=== PATIENT | female | born 1985 | race Caucasian/White ===

== ENCOUNTER 2017-05-28 09:34 | Emergency (ER) | payer MEDICAID, OTHER ==
--- NOTE | 2017-05-28 10:39 | ED PDOC ---
HPI: Psych/Substance Abuse Time Seen by Provider: 05/28/17 09:54 Chief Complaint (Nursing): Substance Abuse Chief Complaint (Provider): Substance Abuse History Per: Patient History/Exam Limitations: no limitations Current Symptoms Are (Timing): Still Present Suicide/Self Injury Attempted (Context): None Additional Complaint(s): Destiney Larkin is a 31 year old female with a history of substance abuse that presents to the ED after her family found her unresponsive at home, where she was given NARCAN. Patient is now awake, alert, and oriented x3 in ED, and reports that she had a knee injury for which she had surgery for in April and still takes pain medication for it. She additionally states that she slipped and fell last night, hurting her left knee. Afterwards she reports that she took two 30 mg tabs Oxycodone, and Xanax 2.5 mg, which caused her to become unresponsive. Patient denies any suicidal ideation, and states that she was only trying to control her pain. Past Medical History Reviewed: Historical Data, Nursing Documentation, Vital Signs Vital Signs: Last Vital Signs Temp 97.7 F 05/28/17 09:48 Pulse 112 H 05/28/17 09:48 Resp 14 05/28/17 09:48 BP 118/76 05/28/17 09:48 Pulse Ox 92 L 05/28/17 09:48 - Medical History PMH: Anxiety, Depression - Surgical History Surgical History: Appendectomy - Family History Family History: States: Unknown Family Hx - Social History Drugs: Other (Pt has hx of substance abuse) - Allergies Allergies/Adverse Reactions: Allergies Allergy/AdvReac Type Severity Reaction Status Date / Time shellfish derived Allergy RASH Verified 05/28/17 09:48 Review of Systems Musculoskeletal: Positive for: Leg Pain (left knee and ankle pain and swelling) Psych: Negative for: Suicidal ideation Physical Exam - Reviewed Nursing Documentation Reviewed: Yes Vital Signs Reviewed: Yes - Physical Exam Appears: Positive for: Non-toxic, No Acute Distress Head Exam: Positive for: ATRAUMATIC, NORMOCEPHALIC Skin: Positive for: Normal Color, Warm Eye Exam: Positive for: Normal appearance, EOMI, PERRL ENT: Negative for: Normal ENT Inspection (dry mucous membranes) Cardiovascular/Chest: Positive for: Regular Rate, Rhythm. Negative for: Murmur Respiratory: Positive for: Normal Breath Sounds. Negative for: Wheezing Gastrointestinal/Abdominal: Positive for: Normal Exam, Soft. Negative for: Tenderness Extremity: Positive for: Swelling (left knee and ankle swelling) Neurologic/Psych: Positive for: Alert, Oriented (x3). Negative for: Motor/ Sensory Deficits - Laboratory Results Result Diagrams: 05/28/17 10:30 05/28/17 10:30 - ECG O2 Sat by Pulse Oximetry: 92 (RA) Pulse Ox Interpretation: Normal Medical Decision Making Medical Decision Making: Impression: Overdose/Left Knee and Ankle Injury Plan: * X-Ray Left Knee * X-Ray Left Ankle * BMP * CBC * Acetaminophen * Alcohol * Salicylate * Urine Drug Screen * Urinalysis * Reevaluation Contacted Poison Control. X-Ray Left Knee FINDINGS: BONES: No fracture. JOINTS: Unremarkable. JOINT EFFUSION: None. OTHER FINDINGS: None. IMPRESSION: No demonstrated fracture or dislocation. X-Ray Left Ankle FINDINGS: BONES: Normal. No fracture. JOINTS: Normal. No osteoarthritis. Ankle mortise maintained. Talar dome intact SOFT TISSUES: Soft tissue swelling laterally without distal fibular abnormality. OTHER FINDINGS: None. IMPRESSION: Soft tissue swelling without acute articular or osseous abnormality. CT Head FINDINGS: HEMORRHAGE: No intracranial hemorrhage. BRAIN: No mass effect or edema. No atrophy or chronic microvascular ischemic changes. VENTRICLES: Unremarkable. No hydrocephalus. CALVARIUM: Unremarkable. PARANASAL SINUSES: Unremarkable as visualized. No significant inflammatory changes. MASTOID AIR CELLS: Unremarkable as visualized. No inflammatory changes. OTHER FINDINGS: None. IMPRESSION: No acute intracranial abnormalities. No significant findings to account for the clinical presentation. 13:54 Patient's imaging is negative. Spoke to Poison Control, advised to observe patient. Waiting on urine tox. 15:00 Interpreted X-Ray, no sign of pneumonia. Patient signed out to Dr. Lou pending urine, crisis eval, and reevaluation. Chest X-Ray FINDINGS: LUNGS: No active pulmonary disease. PLEURA: No significant pleural effusion identified, no pneumothorax apparent. CARDIOVASCULAR: Normal. OSSEOUS STRUCTURES: No significant abnormalities. VISUALIZED UPPER ABDOMEN: Normal. OTHER FINDINGS: None. IMPRESSION: No active disease. Scribe Attestation: Documented by Michelle Benavidez, acting as a scribe for Anne-Marie Nguyễn MD. Provider Scribe Attestation: All medical record entries made by the Scribe were at my direction and personally dictated by me. I have reviewed the chart and agree that the record accurately reflects my personal performance of the history, physical exam, medical decision making, and the department course for this patient. I have also personally directed, reviewed, and agree with the discharge instructions and disposition. Disposition - Clinical Impression Clinical Impression: Substance abuse - Disposition Disposition: Transfer of Care Disposition Time: 15:00 Condition: FAIR Forms: [employer] (Latvian) Patient Signed Over To: Armin Lou
[2017-05-28 10:40] LABS: BASO # 0.1 K/uL (0.0-0.2); BASO % 0.3 % (0.0-2.0); EOS # 0.2 K/uL (0.0-0.7); EOS % 0.8 % (0.0-4.0); HEMOGLOBIN 11.8 g/dL (12.0-16.0); LYMPH # 2.6 K/uL (1.0-4.3); LYMPH % 12.1 % (20.0-40.0); MEAN CELL VOLUME 92.1 fl (81.0-99.0); MEAN CORPUSCULAR HEMOGLOBIN 30.5 pg (27.0-31.0); MEAN CORPUSCULAR HGB CONC 33.1 g/dL (33.0-37.0); MEAN PLATELET VOLUME 7.2 fl (7.2-11.7); MONO # 1.2 K/uL (0.0-0.8); MONO % 5.8 % (0.0-10.0); NEUT # 17.4 K/uL (1.8-7.0); NRBC % 0.1 % (0.0-0.0); RBC 3.88 Mil/uL (3.80-5.20); RED CELL DISTRIBUTION WIDTH 16.5 % (11.5-14.5); WHITE BLOOD COUNT 21.5 K/uL (4.8-10.8)
[2017-05-28 10:56] LABS: ACETAMINOPHEN < 10.0 ug/ml (10.0-30.0); BLOOD UREA NITROGEN 22 mg/dl (7-17); GFR AFRICAN-AMERICAN > 60; GFR NON-AFRICAN AMERICAN > 60; SALICYLATE < 1.0 mg/dl
--- NOTE | 2017-05-28 13:00 | RAD ---
PROCEDURE: Left Knee Radiographs. HISTORY: Pain. COMPARISON: None. FINDINGS: BONES: No fracture. JOINTS: Unremarkable. JOINT EFFUSION: None. OTHER FINDINGS: None. IMPRESSION: No demonstrated fracture or dislocation.
--- NOTE | 2017-05-28 13:24 | CT ---
PROCEDURE: CT HEAD WITHOUT CONTRAST. HISTORY: Trauma, fall COMPARISON: None available. TECHNIQUE: Axial computed tomography images were obtained through the head/brain without intravenous contrast. Radiation dose: Total exam DLP = 831.58 mGy-cm. This CT exam was performed using one or more of the following dose reduction techniques: Automated exposure control, adjustment of the mA and/or kV according to patient size, and/or use of iterative reconstruction technique. FINDINGS: HEMORRHAGE: No intracranial hemorrhage. BRAIN: No mass effect or edema. No atrophy or chronic microvascular ischemic changes. VENTRICLES: Unremarkable. No hydrocephalus. CALVARIUM: Unremarkable. PARANASAL SINUSES: Unremarkable as visualized. No significant inflammatory changes. MASTOID AIR CELLS: Unremarkable as visualized. No inflammatory changes. OTHER FINDINGS: None. IMPRESSION: No acute intracranial abnormalities. No significant findings to account for the clinical presentation.
--- NOTE | 2017-05-28 13:29 | RAD ---
PROCEDURE: Left Ankle Radiographs. HISTORY: fall COMPARISON: None FINDINGS: BONES: Normal. No fracture. JOINTS: Normal. No osteoarthritis. Ankle mortise maintained. Talar dome intact SOFT TISSUES: Soft tissue swelling laterally without distal fibular abnormality. OTHER FINDINGS: None. IMPRESSION: Soft tissue swelling without acute articular or osseous abnormality.
[2017-05-28] MEDS ORDERED: Potassium Chloride 20 mEq ER Tab PO ONE ×2 (13:52→14:10)
[2017-05-28] MEDS ORDERED: Sodium Chloride 0.9% 1,000 ML IV STA (13:53)
--- NOTE | 2017-05-28 14:45 | RAD ---
HISTORY: leukocytosis COMPARISON: No prior. FINDINGS: LUNGS: No active pulmonary disease. PLEURA: No significant pleural effusion identified, no pneumothorax apparent. CARDIOVASCULAR: Normal. OSSEOUS STRUCTURES: No significant abnormalities. VISUALIZED UPPER ABDOMEN: Normal. OTHER FINDINGS: None. IMPRESSION: No active disease.
--- NOTE | 2017-05-28 14:54 | ED PDOC ---
- Laboratory Results Result Diagrams: 05/28/17 10:30 05/28/17 10:30 Interpretation Of Abn Labs: 3 k and benzo/opiate pos - ECG O2 Sat by Pulse Oximetry: 92 (RA) - Progress ED Course And Treament: 1714: Pt. talking and eating. Smiling. States she woke up in the middle of the night to feed child and accidentally fell tripping on toys. She fell again when trying to feed baby again in the morning and ? passed out so boyfriend call EMS. Pt. states she is on oxy and alprazolam for her knee. Not suicidal or homicidal. Did not try to take too many of her meds. Elevated wbc possibly related to acute incident and pt. on steroids for her knee. Crisis eval pending. Pt. is aaox3. Has capacity to make decisions. 1821: Stable. AAOx3. Sats 100% RA. Crisis saw pt. Does not meet criteria for admit. Fu outpt. Medical Decision Making Medical Decision Makin:00 Patient signed out to me by Dr. Nguyễn pending urine and reevaluation. Scribe Attestation: Documented by Michelle Benavidez, acting as a scribe for Armin Lou MD. Provider Scribe Attestation: All medical record entries made by the Scribe were at my direction and personally dictated by me. I have reviewed the chart and agree that the record accurately reflects my personal performance of the history, physical exam, medical decision making, and the department course for this patient. I have ao personally directed, reviewed, and agree with the discharge instructions and disposition. Disposition Counseled Patient/Family Regarding: Studies Performed, Diagnosis, Need For Followup - Clinical Impression Clinical Impression: Substance abuse, Hypokalemia, Head injury - POA Present On Arrival: Falls Or Trauma - Disposition Referrals: [facility] [Outside] - 05/29/17 Disposition: Routine/Home Disposition Time: 18:23 Condition: STABLE Additional Instructions: Return if not better in 3 days. Instructions: Head Injury (ED), Polysubstance Abuse (ED), Hypokalemia (ED)
[2017-05-28 16:27] LABS: BARBITURATES, UR NEGATIVE (NEGATIVE); PHENCYCLIDINE, UR NEGATIVE (NEGATIVE)
[2017-05-28 16:30] LABS: BENZODIAZEPINES, UR POSITIVE (NEGATIVE); OPIATES, UR POSITIVE (NEGATIVE)
[2017-05-28 17:20] VITALS: BP 115/66; PULSE 99; RESP 18; TEMP 98.8
[2017-05-28 17:32] VITALS: O2SAT 92
[2017-05-28 20:00] LABS: SQUAMOUS EPITHIAL 1 /hpf (0-5); URINE BACTERIA RARE (<OCC); URINE BILIRUBIN NEGATIVE (NEGATIVE); URINE BLOOD NEGATIVE (NEGATIVE); URINE CLARITY SLIGHTY-CLOUDY (Clear); URINE COLOR AMBER (YELLOW); URINE GLUCOSE (UA) 50 mg/dL (Normal); URINE LEUKOCYTE ESTERASE NEG Leu/uL (Negative); URINE NITRATE NEGATIVE (NEGATIVE); URINE PROTEIN 30 mg/dL (NEGATIVE)
--- NOTE | 2017-05-29 09:27 | CARD ---
APPROVED REPORT EKG Measurement Heart [id number] <Conclusion> Normal sinus rhythm Normal ECG
== END 2017-05-28 18:42 | disposition home or self-care (01) ==
LOC: H.ER 09:34
DX: F19.10 Other psychoactive substance abuse, uncomplicated (principal); S09.90XA Unspecified injury of head, initial encounter; W01.0XXA Fall on same level from slipping, tripping and stumbling without subsequent striking against object, initial encounter; Y92.89 Other specified places as the place of occurrence of the external cause; E87.6 Hypokalemia; F32.9 Major depressive disorder, single episode, unspecified; F41.9 Anxiety disorder, unspecified
CPT/HCPCS: 70450; 71010; 73562; 73610; 80048; 80320; 80324; 80329; 80345; 80346; 80349; 80353; 80358; 80361; 81003; 81025; 83992; 85025; 93005; 99285; J7040

== ENCOUNTER 2017-09-04 14:29 | Emergency (ER) | payer SELFPAY ==
[2017-09-04 14:34] VITALS: PULSE 88; RESP 16; TEMP 98.9; O2SAT 100
[2017-09-04 14:45] VITALS: BP 128/93
[2017-09-04] MEDS ORDERED: DiphenhydrAMINE 50 mg/ml Inj IVP STA (15:11)
[2017-09-04] MEDS ORDERED: Lactated Ringer's 1,000 ML IV STA (15:11)
[2017-09-04] MEDS ORDERED: Dextrose 5%/Lactated Ringer's 1,000 ML IV SCH (15:15)
--- NOTE | 2017-09-04 15:27 | ED PDOC ---
HPI:Nausea, Vomiting, Diarrhea Time Seen by Provider: 09/04/17 15:01 Chief Complaint (Nursing): GI Problem Chief Complaint (Provider): GI Problem History Per: Patient History/Exam Limitations: no limitations Onset/Duration Of Symptoms: Days (x2) Current Symptoms Are (Timing): Still Present Additional Complaint(s): 31 year old female presents to the emergency department with a complaint of non- bilious vomiting associated with watery diarrhea, abdominal cramping, chills, subjective fever and anxiety ongoing for 2 days. Patient reported some blood tinge in vomit during severe episodes but no brandi blood. Patient stated she ran out of her pain medication (Oxycodone 30mg) recently and possibly going through withdraw. She managed to take some Suboxone without alleviation in symptoms. She denied any alcohol or drug use, recent travel, sick contacts or recent antibiotics. PMD: Chanelle Jamison MD Past Medical History Reviewed: Historical Data, Nursing Documentation, Vital Signs Vital Signs: Last Vital Signs Temp 98.9 F 09/04/17 14:32 Pulse 88 09/04/17 14:32 Resp 16 09/04/17 14:32 BP 128/93 H 09/04/17 14:32 Pulse Ox 100 09/04/17 14:32 - Medical History PMH: Anxiety, Depression Denies: Diabetes, Hepatitis, HIV, HTN, Seizures, Sexually Transmitted Disease - Surgical History Surgical History: Appendectomy - Family History Family History: States: Unknown Family Hx Other Family History: mother has osteoporosis - Social History Current smoker - smoking cessation education provided: No Ex-Smoker (has not smoked in the last 12 months): No Alcohol: None Drugs: Cannabis - Home Medications Home Medications: Ambulatory Orders Medication Instructions Recorded Atropine/Diphenoxylate [Lonox 2 tab PO Q6 PRN #30 tab 09/04/17 0.025 MG-2.5 MG] Ondansetron ODT [Zofran ODT] 1 odt PO Q6 PRN #20 odt 09/04/17 - Allergies Allergies/Adverse Reactions: Allergies Allergy/AdvReac Type Severity Reaction Status Date / Time shellfish derived Allergy RASH Verified 05/28/17 09:48 Review of Systems ROS Statement: Except As Marked, All Systems Reviewed And Found Negative Constitutional: Positive for: Fever (subjective), Chills Gastrointestinal: Positive for: Vomiting (nonbilious with slight blood tinge), Abdominal Pain (cramping), Diarrhea (watery) Psych: Positive for: Anxiety Physical Exam - Reviewed Nursing Documentation Reviewed: Yes Vital Signs Reviewed: Yes - Physical Exam Appears: Positive for: Uncomfortable, In Acute Distress (acute in GI) Head Exam: Positive for: ATRAUMATIC, NORMOCEPHALIC Skin: Positive for: Warm, Dry Eye Exam: Positive for: EOMI, PERRL ENT: Positive for: Pharynx Is (clear), Other (moist mucous membranes) Neck: Positive for: Painless ROM, Supple Cardiovascular/Chest: Positive for: Regular Rate, Rhythm. Negative for: Murmur Respiratory: Positive for: Normal Breath Sounds. Negative for: Wheezing Gastrointestinal/Abdominal: Positive for: Soft. Negative for: Tenderness, Mass , Distended, Guarding Back: Positive for: Normal Inspection. Negative for: Decreased ROM Extremity: Positive for: Other (diffuse tremurs) Lymphatic: Negative for: Adenopathy Neurologic/Psych: Positive for: Alert, Mood/Affect (anxious). Negative for: Motor/Sensory Deficits - Laboratory Results Result Diagrams: 09/04/17 15:56 09/04/17 15:56 - ECG O2 Sat by Pulse Oximetry: 100 (RA) Pulse Ox Interpretation: Normal Medical Decision Making Medical Decision Making: Initial Impression: Vomiting; Diarrhea Differential Diagnosis: Gastroenteritis; Gastritis; Dehydration; Electrolyte abnormality; Opiate withdrawal Initial Plan: * VBG * Alcohol serum * CMP * Drug screen, urine * Lipase * Magnesium * Phosphorous * Urine * Urine dipstick * CBC * Benadryl 25mg IVP * Dextrose 5%/Lactated Ringer's 1,000ml IV per 100mls/hr * Lactated Ringer's 1,000ml IV per 1,000mls/hr * Pepcid 40mg IV * Reglan 10mg IV * Zofran 4mg PO Labs c/w dehydration (elevated BUN/cr, sodium.) Addn'l IVF ordered 1800 On reevaluation pt feeling better DW pt findings and plan of care. Po challenge with fluids. 1930 Tolerated PO challenge. Stable for DC with outpatient followup. No clinical findings that warrant further ER management or admission. Detox resources given. Scribe Attestation: Documented by Citlali Noriega, acting as a scribe for Court Montelongo MD. Provider Scribe Attestation: All medical record entries made by the Scribe were at my direction and personally dictated by me. I have reviewed the chart and agree that the record accurately reflects my personal performance of the history, physical exam, medical decision making, and the department course for this patient. I have also personally directed, reviewed, and agree with the discharge instructions and disposition. Disposition - Clinical Impression Clinical Impression: Dehydration, Opiate withdrawal, Gastroenteritis - Disposition Referrals: [facility] [Outside] Disposition: Routine/Home Disposition Time: 19:44 Condition: IMPROVED Prescriptions: Atropine/Diphenoxylate [Lonox 0.025 MG-2.5 MG] 2 tab PO Q6 PRN #30 tab PRN Reason: Diarrhea Ondansetron ODT [Zofran ODT] 1 odt PO Q6 PRN #20 odt PRN Reason: Nausea/Vomiting Instructions: Prescription Drug Withdrawal (DC), Dehydration, Adult (DC), Gastroenteritis (ED) Forms: [employer] ([place])
[2017-09-04 15:49] LABS: VENOUS BLOOD GAS BASE EXCESS 1.5 mmol/L (0.0-2.0); VENOUS BLOOD GAS PCO2 43 mmHg (40-60); VENOUS BLOOD GAS PO2 28 mm/Hg (30-55)
[2017-09-04 16:03] LABS: BASO % 0.2 % (0.0-2.0); HEMOGLOBIN 15.5 g/dL (12.0-16.0); LYMPH # 1.9 K/uL (1.0-4.3); LYMPH % 13.1 % (20.0-40.0); MEAN CELL VOLUME 89.4 fl (81.0-99.0); MEAN CORPUSCULAR HEMOGLOBIN 30.6 pg (27.0-31.0); MEAN CORPUSCULAR HGB CONC 34.3 g/dL (33.0-37.0); MONO # 0.8 K/uL (0.0-0.8); MONO % 5.2 % (0.0-10.0); NEUT % 81.5 % (50.0-75.0); RBC 5.06 Mil/uL (3.80-5.20); RED CELL DISTRIBUTION WIDTH 13.8 % (11.5-14.5); WHITE BLOOD COUNT 14.7 K/uL (4.8-10.8)
[2017-09-04 16:16] LABS: ALB/GLOB RATIO 1.2 (1.0-2.1); ALBUMIN 5.6 g/dL (3.5-5.0); ALT/SGPT 45 U/L (9-52); AST/SGOT 38 U/L (14-36); BLOOD UREA NITROGEN 35 mg/dl (7-17); CALCIUM 10.5 mg/dL (8.4-10.2); GFR AFRICAN-AMERICAN 49; GFR NON-AFRICAN AMERICAN 40; LIPASE 204 U/L (23-300)
[2017-09-04] MEDS ORDERED: DiphenhydrAMINE 50 mg/ml Inj ONE (16:46)
[2017-09-04] MEDS ORDERED: Promethazine 25 MG in Sodium Chloride 0.9% 50 ML IV STA (17:10)
[2017-09-04] MEDS ORDERED: Sodium Chloride 0.9% 1,000 ML IV STA (17:35)
== END 2017-09-04 20:30 | disposition home or self-care (01) ==
LOC: H.ER 14:29
DX: E86.0 Dehydration (principal); F11.23 Opioid dependence with withdrawal; K52.9 Noninfective gastroenteritis and colitis, unspecified; F32.9 Major depressive disorder, single episode, unspecified; F41.9 Anxiety disorder, unspecified
CPT/HCPCS: 80053; 81025; 82803; 83690; 83735; 84100; 85025; 96361; 96374; 96375; 99284; G0480; J1200; J2550; J7040; J7120